=== PATIENT | male | born 1945 | race Caucasian/White ===

== ENCOUNTER 2023-09-26 10:51 | Day surgery (SDC) | payer MEDICARE, BC ==
[2023-09-26] VITALS (13 sets, daily range): BP systolic 130–139; BP diastolic 72–97; PULSE 73–125; RESP 16–18; TEMP 97.8; O2SAT 96–98
[~2023-09-26] VITALS: Ht 180.3 cm; Wt 104.3 kg
[~2023-09-26 10:51] MED LIST: APIX5TAB3 PO; BRIN8DRO2; DIGO125T97 PO; DILT-117 PO; DORZ10DR10; GEMF600T89 PO; LOSA-416 PO; MULT-1085 PO; OMEP20TA43 PO; ROSU5TAB43 PO; SAW450CA7 PO; TADA10TA14 PO; TIMO5DRO36
[2023-09-26 12:18] LABS: ALBUMIN 3.5 G/DL (3.4-5.0); ANION GAP 8 (8-16); BASOPHILS % (AUTO) 0.5 % (0-1); BLOOD UREA NITROGEN 12 MG/DL (7-18); BUN/CREATININE RATIO 12.4 (10.0-20.0); CALCIUM 8.4 MG/DL (8.5-10.1); CHLORIDE 107 MMOL/L (99-107); CREATININE 0.97 MG/DL (0.60-1.10); EOSINOPHILS # (AUTO) 0.1 X10'3 (0-0.9); EOSINOPHILS % (AUTO) 2.4 % (0-6); GLUCOSE 96 MG/DL (70-104); HEMATOCRIT 39.4 % (42.0-52.0); HEMOGLOBIN 13.3 g/dl (14.0-17.9); LYMPHOCYTES # (AUTO) 1.4 X10'3 (1.1-4.8); LYMPHOCYTES % (AUTO) 33.7 % (21-51); MEAN CORPUSCULAR HEMOGLOBIN 34.2 PG (27.0-31.0); MEAN CORPUSCULAR HGB CONC 33.7 g/dL (33.0-36.5); MEAN CORPUSCULAR VOLUME 101.5 FL (78-98); MEAN PLATELET VOLUME 7.3 FL (7.4-10.4); MONOCYTES # (AUTO) 0.5 X10'3 (0-0.9); MONOCYTES % (AUTO) 10.7 % (2-12); NEUTROPHILS # (AUTO) 2.2 X10'3 (1.8-7.7); NEUTROPHILS % (AUTO) 52.7 % (42-75); PLATELET COUNT 146 X10'3 (140-440); POTASSIUM 4.2 MMOL/L (3.5-5.1); RED BLOOD COUNT 3.88 X10'6 (4.70-6.10); RED CELL DISTRIBUTION WIDTH 13.5 % (11.5-14.5); SODIUM 140 MMOL/L (135-145); TOTAL CARBON DIOXIDE 25.2 MMOL/L (24-32); WHITE BLOOD COUNT 4.3 X10'3 (4.5-11.0); eCRCL 68 ML/MIN; eGFR 75 ML/MIN
[2023-09-26 12:23] LABS: APTT 27 SECONDS (22-32); PROTHROMBIN TIME 10.9 SECONDS (9.0-12.0)
[2023-09-26] MEDS: fentaNYL/PF 50MCG/1 ML 2ML syringe IV ONE (13:16)
[2023-09-26] MEDS: MIDAZolam 1mg/ml 10ml vial IV ONE (13:16)
== END 2023-09-26 15:15 | disposition home or self-care (01) ==
LOC: SSTAY O 10:51
PROVIDERS: ATTEND Student in an Organized Health Care Education/Training Program
DX: I48.91 Unspecified atrial fibrillation (principal); I10 Essential (primary) hypertension; E11.9 Type 2 diabetes mellitus without complications; E78.5 Hyperlipidemia, unspecified; K21.9 Gastro-esophageal reflux disease without esophagitis; Z86.73 Personal history of transient ischemic attack (TIA), and cerebral infarction without residual deficits; Z79.01 Long term (current) use of anticoagulants; Z79.899 Other long term (current) drug therapy
CPT/HCPCS: 36415; 80048; 85025; 85610; 85730; 93325; 94760; A4620; C8925; J2250; J3010; J7030; 93312